=== PATIENT | female | born 1970 | race Caucasian/White ===

== ENCOUNTER 2016-07-25 09:59 | Emergency (ER) | payer MEDICAID ==
[2016-07-25 10:03] VITALS: BP 123/82; PULSE 88; RESP 18; TEMP 97.4; O2SAT 100; BMI 22.6
--- NOTE | 2016-07-25 10:27 | C.PDOC ---
History Of Present Illness Pt c/o itching in chest area. Time Seen by Provider: 07/25/16 10:10 Chief Complaint (Nursing): Abnormal Skin Integrity History Per: Patient Onset/Duration Of Symptoms: Days (about 1 month), Waxing/Waning Current Symptoms Are (Timing): Still Present Location Of Injury: Anterior: Chest Quality Of Symptoms: Itching Severity: Mild Additional History Per: Prior Records Past Medical History Reviewed: Historical Data, Nursing Documentation, Vital Signs Vital Signs: Last Vital Signs Temp 97.4 F L 07/25/16 10:03 Pulse 88 07/25/16 10:03 Resp 18 07/25/16 10:03 BP 123/82 07/25/16 10:03 Pulse Ox 100 07/25/16 10:03 - Medical History PMH: No Chronic Diseases - [facility] Procedures EPISIOTOMY (08/09/04) MEDICAL INDUCTION LABOR (08/09/04) Family History: States: Unknown Family Hx - Social History Hx Tobacco Use: No Hx Alcohol Use: No Hx Substance Use: No - Immunization History Hx Tetanus Toxoid Vaccination: No Hx Influenza Vaccination: No Hx Pneumococcal Vaccination: No Review Of Systems Except As Marked, All Systems Reviewed And Found Negative. Constitutional: Negative for: Fever, Weakness Eyes: Positive for: Other (itching on/off) ENT: Positive for: Nose Congestion ("sneezing sometimes"). Negative for: Throat Pain, Throat Swelling Cardiovascular: Negative for: Chest Pain Respiratory: Positive for: Shortness of Breath (on/off, mild. None at present time. ). Negative for: Hemoptysis, SOB with Excertion Gastrointestinal: Negative for: Nausea, Vomiting, Abdominal Pain Musculoskeletal: Negative for: Neck Pain, Back Pain, Leg Pain Skin: Positive for: Rash Neurological: Negative for: Weakness, Numbness, Seizures, Altered Mental Status Physical Exam - Physical Exam Appears: Non-toxic, No Acute Distress Skin: Normal Color, Warm, Dry, Rash (mild, slightly erthematous excoriations? to anterior chest area) Head: Atraumatic, Normacephalic Eye(s): bilateral: Normal Inspection, PERRL, EOMI Neck: Normal ROM, Supple Chest: Symmetrical, No Deformity, No Ecchymosis, No Subcutaneous Emphysema Cardiovascular: Rhythm Regular Respiratory: Normal Breath Sounds, No Accessory Muscle Use Gastrointestinal/Abdominal: Soft, No Tenderness Extremity: Normal ROM, No Pedal Edema, No Calf Tenderness Neurological/Psych: Oriented x3, Normal Speech, Normal Motor, Normal Sensation ED Course And Treatment O2 Sat by Pulse Oximetry: 100 Pulse Ox Interpretation: Normal Disposition Counseled Patient/Family Regarding: Diagnosis, Need For Followup, Rx Given - Disposition Disposition: HOME/ ROUTINE Disposition Time: 10:29 Condition: STABLE Additional Instructions: Follow up with your doctor for further evaluation and treatment. Return to the ER if you develop chest pain, dizziness, trouble breathing, worsening of symptoms or if you have any other concerns. Prescriptions: Loratadine [Claritin] 10 mg PO DAILY #30 tab Instructions: Allergies (ED) Forms: General Discharge Instructions - Clinical Impression Clinical Impression: Itch of skin
== END 2016-07-25 10:37 | disposition home or self-care (01) ==
LOC: C.ER 09:59
DX: L29.9 Pruritus, unspecified (principal)